=== PATIENT | male | born 1960 | race Caucasian/White ===

== ENCOUNTER 2025-01-15 08:39 | Day surgery (SDC) | payer BC ==
[2025-01-11 10:44] VITALS: BMI 23.1
[2025-01-15] MEDS ORDERED: Bupivacaine 0.25% HCL 30 ML VIAL ONE (11:41)
[2025-01-15] MEDS ORDERED: PROPOFOL 20 ML ONE (11:42)
[2025-01-15] MEDS ORDERED: Lidocaine 1% PF 5 ML VIAL ONE (11:42)
[2025-01-15] MEDS ORDERED: CEFAZOLIN 2 GM VIAL ONE (11:48)
[2025-01-15] MEDS ORDERED: Ondansetron PF 4 MG/2 ML Vial ONE (11:59)
== END 2025-01-15 13:59 | disposition home or self-care (01) ==
LOC: SDC 08:39
PROVIDERS: ATTEND Surgery
PROC: 0WP803Z Removal of Infusion Device from Chest Wall, Open Approach (ICD-10-PCS; principal; 2025-01-15)
DX: C18.0 Malignant neoplasm of cecum (principal); Z90.49 Acquired absence of other specified parts of digestive tract
CPT/HCPCS: J0665; J1100; J2405; J2704; J3010